=== PATIENT | female | born 1965 | race Asian ===

== ENCOUNTER 2023-01-28 06:38 | Day surgery (SDC) | payer OTHER ==
[~2023-01-28] VITALS: Ht 165.1 cm; Wt 71.7 kg
[2023-01-28] MEDS ORDERED: fentaNYL citrate 0.05 MG/ML VIAL ONE (07:48)
[2023-01-28] MEDS ORDERED: LIDOCAINE 2% 100 MG/5 ML UJET TP ONE (07:49)
[2023-01-28] MEDS ORDERED: MIDAZOLAM 2 MG/2 ML VIAL ONE (08:09)
[2023-01-28] MEDS ORDERED: MIDAZOLAM 2 MG/2 ML VIAL IVP ONE (09:30)
[2023-01-28] MEDS ORDERED: fentaNYL citrate 0.05 MG/ML VIAL IVP ONE (09:30)
== END 2023-01-28 09:00 | disposition home or self-care (01) ==
LOC: MDS 06:38 → MMU 06:38 → MDS 09:00
PROVIDERS: ATTEND Internal Medicine Gastroenterology
DX: Z12.11 Encounter for screening for malignant neoplasm of colon (principal); Z85.43 Personal history of malignant neoplasm of ovary; Z90.710 Acquired absence of both cervix and uterus
CPT/HCPCS: 45378; J2250; J3010